=== PATIENT | male | born 1990 | race Caucasian/White ===

== ENCOUNTER → 2016-08-04 | Outpatient (CLI) | payer MEDICAID | LOC: LABMAIN 09:23 | PROVIDERS: ATTEND Internal Medicine | DX: E03.9 Hypothyroidism, unspecified (principal); E55.9 Vitamin D deficiency, unspecified; E78.5 Hyperlipidemia, unspecified | CPT/HCPCS: 36415; 80061; 82306; 84439; 84443; 84481 ==

== ENCOUNTER → 2019-09-12 | Outpatient (CLI) | payer BC ==
[2019-09-12 08:46] LABS: Basophils % (A) 0 %; Eosinophils # (A) 0.1 k/uL (0-0.7); Eosinophils % (A) 1 %; HCT 50.5 % (39.0-53.0); HGB 16.6 gm/dL (13.0-17.5); Lymphocytes # (A) 2.6 k/uL (1.0-4.8); Lymphocytes % (A) 27 %; MCH 28.5 pg (25.0-35.0); MCV 86.5 fL (80.0-100.0); Mean Platelet Volume 6.8; Monocytes # (A) 0.5 k/uL (0-1.0); Monocytes % (A) 5 %; Neutrophils # (A) 6.3 k/uL (1.3-7.7); Neutrophils % (A) 64 %; Platelet Count 363 k/uL (150-450); RBC 5.84 m/uL (4.30-5.90); RDW 12.6 % (11.5-15.5); WBC 9.8 k/uL (3.8-10.6)
[2019-09-12 12:58] LABS: ALT 24 U/L (4-49); AST 32 U/L (17-59); African American GFR (CKD) >90 (>60 ml/min/1.73 sqM); Albumin 4.8 g/dL (3.5-5.0); Albumin/Globulin Ratio 1.4; Alkaline Phosphatase 69 U/L (38-126); Anion Gap 11 mmol/L; Blood Urea Nitrogen 14 mg/dL (9-20); Calcium 10.1 mg/dL (8.4-10.2); Carbon Dioxide 28 mmol/L (22-30); Chloride 101 mmol/L (98-107); Globulin 3.5 g/dL; Glucose 92 mg/dL (74-99); Non-African American GFR(CKD) >90 (>60 ml/min/1.73 sqM); Potassium 4.3 mmol/L (3.5-5.1); Sodium 140 mmol/L (137-145); T4, Free (Free Thyroxine) 1.08 ng/dL (0.78-2.19); Total Bilirubin 0.7 mg/dL (0.2-1.3); Total Protein 8.3 g/dL (6.3-8.2)
[2019-09-12 13:04] LABS: Cholesterol 160 mg/dL (<200); HDL Cholesterol 45 mg/dL (40-60); LDL Cholesterol,Calculated 96 mg/dL (0-99); Triglycerides 96 mg/dL (<150)
== END | disposition home or self-care (01) ==
LOC: LABMAIN 07:47
PROVIDERS: ATTEND Internal Medicine
DX: Z00.00 Encounter for general adult medical examination without abnormal findings (principal); Z13.6 Encounter for screening for cardiovascular disorders; E03.9 Hypothyroidism, unspecified
CPT/HCPCS: 36415; 80053; 80061; 84439; 84443; 84481; 85025

== ENCOUNTER → 2020-06-15 | Outpatient (CLI) | payer BC ==
[2020-06-15 18:32] LABS: HCT 51.5 % (39.6-50.0); HGB 17.6 g/dL (13.0-17.0); MCH 28.9 pg (27.0-32.0); MCHC 34.2 g/dL (32.0-37.0); MCV 84.7 fL (80.0-97.0); Mean Platelet Volume 9.5 fL (9.5-12.2); Platelet Count 271 X 10*3/uL (140-440); RBC 6.08 X 10*6/uL (4.40-5.60); RDW 12.6 % (11.5-14.5); WBC 8.31 X 10*3/uL (4.50-10.00)
[2020-06-15 22:02] LABS: Hemoglobin A1C 5.1 % (4.0-6.0)
[2020-06-15 22:34] LABS: African American GFR (CKD) 92.2 (60.0-200.0); Albumin/Globulin Ratio 1.85 (1.60-3.17); Anion Gap 12.7 mmol/L (4.00-12.00); BUN/Creat Ratio 10.83 Ratio (12.00-20.00); Calcium 9.6 mg/dL (8.7-10.3); Carbon Dioxide 25.3 mmol/L (21.6-31.8); Chol/HDL Ratio 3.72; Globulin 2.7 g/dL (1.6-3.3); LDL Cholesterol,Calculated 110.2 mg/dL (0.0-131.0); Non-African American GFR(CKD) 79.5 (60.0-200.0); Potassium 3.6 mmol/L (3.5-5.5); Total Bilirubin 1.2 mg/dL (0.3-1.2); Total Protein 7.7 g/dL (6.2-8.2); VLDL Calculation 17.8 mg/dL (5.00-40.00)
== END | disposition home or self-care (01) ==
LOC: LABWHC1 11:12
PROVIDERS: ATTEND Internal Medicine Clinical Cardiac Electrophysiology
DX: E03.9 Hypothyroidism, unspecified (principal); E78.5 Hyperlipidemia, unspecified
CPT/HCPCS: 36415; 80053; 80061; 83036; 84443; 85027

== ENCOUNTER → 2021-01-28 | Outpatient (CLI) | payer BC ==
[2021-01-28 16:33] LABS: Basophils # (A) 0.02 X 10*3/uL (0.00-0.10); Basophils % (A) 0.3 %; Eosinophils # (A) 0.06 X 10*3/uL (0.04-0.35); Eosinophils % (A) 0.8 %; HCT 48.2 % (39.6-50.0); HGB 17.1 g/dL (13.0-17.0); Lymphocytes # (A) 2.11 X 10*3/uL (0.90-5.00); Lymphocytes % (A) 29.9 %; MCH 29.7 pg (27.0-32.0); MCHC 35.5 g/dL (32.0-37.0); MCV 83.7 fL (80.0-97.0); Mean Platelet Volume 9.6 fL (9.5-12.2); Monocytes # (A) 0.55 X 10*3/uL (0.20-1.00); Monocytes % (A) 7.8 %; Neutrophils % (A) 60.9 %; Platelet Count 274 X 10*3/uL (140-440); RBC 5.76 X 10*6/uL (4.40-5.60); RDW 12.4 % (11.5-14.5); WBC 7.06 X 10*3/uL (4.50-10.00)
[2021-01-28 18:24] LABS: ALT 23 U/L (10-49); AST 24 U/L (14-35); African American GFR (CKD) 110.9 (60.0-200.0); Albumin 4.8 g/dL (3.8-4.9); Albumin/Globulin Ratio 1.84 (1.60-3.17); Alkaline Phosphatase 54 U/L (41-126); BUN/Creat Ratio 14.37 Ratio (12.00-20.00); Blood Urea Nitrogen 14.8 mg/dL (9.0-27.0); Calcium 9.7 mg/dL (8.7-10.3); Carbon Dioxide 24.7 mmol/L (21.6-31.8); Chloride 98 mmol/L (96-109); Chol/HDL Ratio 3.56 Ratio; Globulin 2.6 g/dL (1.6-3.3); Glucose 97 mg/dL (70-110); LDL Cholesterol,Calculated 103.4 mg/dL (0.0-131.0); Non-African American GFR(CKD) 95.7 (60.0-200.0); Potassium 3.7 mmol/L (3.5-5.5); Sodium 134 mmol/L (135-145); Total Protein 7.4 g/dL (6.2-8.2); VLDL Calculation 10.86 mg/dL (5.00-40.00)
== END | disposition home or self-care (01) ==
LOC: LABWHC1 01-27 07:24
PROVIDERS: ATTEND Family Medicine
DX: Z00.01 Encounter for general adult medical examination with abnormal findings (principal); E03.9 Hypothyroidism, unspecified
CPT/HCPCS: 36415; 80053; 80061; 84439; 84443; 85025

== ENCOUNTER → 2024-07-21 | Outpatient (CLI) | payer MEDICAID ==
[2024-07-21 15:40] VITALS: BP 132/71; PULSE 120; RESP 16; TEMP 98.1
--- NOTE | 2024-07-21 16:30 | P.SLEEP ---
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 The patient is coming in for sleep apnea evaluation. The patient has snoring and he wakes up tired and feels quite exhausted during the day. He has 2 toddlers at home and his is with a third child and she is delivering on 30 July. The patient works 4 days a week, and he is doing a morning shift and he works between 7 AM and 5 PM. His functionality is well-preserved on the job. He does not fall asleep nor he takes any naps during the day. However, he is feeling quite exhausted and is having difficulties with recurrent respiratory tract infections and tachycardia. The patient was diagnosed having viral infections on 4 different occasions including influenza A. He is currently having sinus tachycardia, under the [facility] of [facility], Dr. Raygoza. His baseline heart rate is ranging between 100-120. No significant palpitations. No chest pain. Denies having any sleep fragmentation. No nocturia. No grinding. He wakes up with a dry mouth. No nighttime heartburn or shortness of breath. He is averaging around 6 to 7 hours of sleep. He goes to bed between 10 and 10:30 PM and he wakes up 5:45 AM in the morning. On the days off, he sleeps between 11 PM and 8 AM in the morning. Does not drink alcohol. No utilization of any caffeinated beverages. No restlessness in lower extremities. No sleep paralysis. No hallucinations. No cataplexy. His current Ravenna score is at 4. 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 He also has hypothyroidism, currently on thyroid replacement therapy and the patient also has chronic anxiety, maintained on Lexapro. No significant weight gain over the years. He is weight is up by around 10 pounds over the past 5 years. Review of Systems Constitutional: Reports fatigue Eyes: denies as per HPI, denies blurred vision, denies bulging eye, denies decreased vision, denies diplopia, denies discharge, denies dry eye, denies irritation, denies itching, denies pain, denies photophobia, denies loss of peripheral vision, denies loss of vision, denies tunnel vision/blind spots Ears: deny: decreased hearing, ear discharge, earache, tinnitus Ears, nose, mouth and throat: Reports as per HPI Breasts: absent: as per HPI, gynecomastia Cardiovascular: Reports rapid heart beat Respiratory: Reports snoring Gastrointestinal: Reports as per HPI Genitourinary: Reports as per HPI Musculoskeletal: Reports as per HPI Musculoskeletal: absent: ankle pain, ankle stiffness, ankle swelling, as per HPI, elbow pain, elbow stiffness, elbow swelling, foot pain, foot stiffness, foot swelling, hand pain, hand stiffness, hand swelling, hip pain, hip stiffness, hip swelling, knee pain, knee stiffness, knee swelling, shoulder pain, shoulder stiffness, shoulder swelling, wrist pain, wrist stiffness, wrist swelling Integumentary: Reports as per HPI Neurological: Reports as per HPI Psychiatric: Reports hypersomnia, Reports sleep disturbances Endocrine: Reports as per HPI, Reports fatigue Hematologic/Lymphatic: Reports as per HPI Allergic/Immunologic: Reports as per HPI Past Medical History Past Medical History: Asthma, Thyroid Disorder Additional Past Medical History / Comment(s): hypothyroidism, SINUS HEADACHES History of Any Multi-Drug Resistant Organisms: None Reported Past Surgical History: Adenoidectomy Additional Past Surgical History / Comment(s): nasel surg Past Anesthesia/Blood Transfusion Reactions: No Reported Reaction Past Psychological History: No Psychological Hx Reported Smoking Status: Never smoker Past Alcohol Use History: Rare Past Drug Use History: None Reported - Past Family History Father Family Medical History: GERD/Reflux, Hypertension Additional Family Medical History / Comment(s): DIVERTICULITIS, SNORING, HEADACHES Mother Additional Family Medical History / Comment(s): OSTEOPENIA, SNORING, HEADACHES Medications and Allergies Home Medications Medication Instructions Recorded Confirmed Type Albuterol Sulfate [Proair Hfa] 1 - 2 puff INHALATION Q6HR PRN 03/19/15 03/19/15 History Escitalopram [Lexapro] 2.5 mg PO DAILY 07/21/24 07/21/24 History Levothyroxine Sodium 88 mcg PO DAILY 07/21/24 07/21/24 History Allergies Allergy/AdvReac Type Severity Reaction Status Date / Time chlorpheniramine maleate Allergy Unknown Verified 04/28/22 17:53 [From Extendryl] Childhood cyclobenzaprine Allergy Unknown Verified 04/28/22 17:53 [From Flexeril] dexchlorpheniramine maleate Allergy Unknown Verified 04/28/22 17:53 [From Extendryl] Childhood methylscopolamine nitrate Allergy Unknown Verified 04/28/22 17:53 [From Extendryl] Childhood phenylephrine HCl Allergy Unknown Verified 04/28/22 17:53 [From Extendryl] Childhood sulfamethoxazole Allergy Unknown Verified 04/28/22 17:53 [From Bactrim] Childhood trimethoprim [From Bactrim] Allergy Unknown Verified 04/28/22 17:53 Childhood omeprazole AdvReac Unknown Verified 04/28/22 17:54 Physical Exam Vitals: Vital Signs Temp Pulse Resp BP Pulse Ox 07/21/24 15:39 98.1 F 120 H 16 132/71 99 Intake and Output 07/21/24 07/21/24 07/21/24 06:59 14:59 22:59 Other: Weight 82.554 kg The patient appeared well nourished and normally developed. Vital signs as documented. The patient has a body mass index of 34.2, the size of the neck is 16 inches Head exam is unremarkable. No scleral icterus or corneal arcus noted. Neck is without jugular venous distension, thyromegaly, or carotid bruits. Carotid upstrokes are brisk bilaterally. Mallampati class IV. No overbite. Lungs are clear to auscultation and percussion. Cardiac exam reveals the PMI to be normally sized and situated. Rhythm is regular. First and second heart sounds normal. No murmurs, rubs or gallops. Abdominal exam reveals normal bowel sounds, no masses, no organomegaly and no aortic enlargement. Extremities are nonedematous and both femoral and pedal pulses are normal. Examination of the skin revealed no evidence of significant rashes, suspicious appearing nevi or other concerning lesions. Neurologically, the patient is awake and alert and the patient does not have any focal neurological deficit. Cranial nerves are essentially intact. Assessment and Plan Plan: Chronic fatigue with limited sleepiness and an Ravenna score of 4. The patient has soft snoring and on examination has a Mallampati class IV. Rule out the po ssibility of postviral syndrome. Rule out underlying obstructive sleep apnea. 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 Will perform a home sleep study We will decide on treatment options based on the results of the home sleep study Follow-up with cardiology regarding the sinus tachycardia Continue Lexapro Continue thyroid hormone replacement and his levels have been adequate based on most recent blood work Maintain good sleep hygiene measures Maintain regular sleep schedule Will continue to follow Sleep Note - Sleep Data ESS Total: 4 - Sleep Note Sleep Note: Temperature: 98.1 F Pulse Rate: 120 Respiratory Rate: 16 Blood Pressure: 132/71 SpO2: 99 Height: 5 ft 4 in Weight: 82.554 kg BMI: Neck Circumference: 16
== END ==
LOC: 3 N SLEEP 14:53
PROVIDERS: ATTEND Internal Medicine Critical Care Medicine
DX: R06.83 Snoring (principal); R53.82 Chronic fatigue, unspecified; F41.9 Anxiety disorder, unspecified; D75.1 Secondary polycythemia; E03.9 Hypothyroidism, unspecified; E66.9 Obesity, unspecified; Z68.34 Body mass index [BMI] 34.0-34.9, adult; Z79.899 Other long term (current) drug therapy; Z88.2 Allergy status to sulfonamides; Z88.8 Allergy status to other drugs, medicaments and biological substances; Z91.048 Other nonmedicinal substance allergy status
CPT/HCPCS: 99211

== ENCOUNTER → 2024-10-09 | Outpatient (CLI) | payer MEDICAID ==
--- NOTE | 2024-10-26 20:39 | P.PCN ---
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 The patient is coming in for sleep apnea evaluation. The patient has snoring and he wakes up tired and feels quite exhausted during the day. He has 2 toddlers at home and his is with a third child and she is delivering on 30 July. The patient works 4 days a week, and he is doing a morning shift and he works between 7 AM and 5 PM. His functionality is well-preserved on the job. He does not fall asleep nor he takes any naps during the day. However, he is feeling quite exhausted and is having difficulties with recurrent respiratory tract infections and tachycardia. The patient was diagnosed having viral infections on 4 different occasions including influenza A. He is currently having sinus tachycardia, under the care of [facility], Dr. Raygoza. His baseline heart rate is ranging between 100-120. No significant palpitations. No chest pain. Denies having any sleep fragmentation. No nocturia. No grinding. He wakes up with a dry mouth. No nighttime heartburn or shortness of breath. He is averaging around 6 to 7 hours of sleep. He goes to bed between 10 and 10:30 PM and he wakes up 5:45 AM in the morning. On the days off, he sleeps between 11 PM and 8 AM in the morning. Does not drink alcohol. No utilization of any caffeinated beverages. No restlessness in lower extremities. No sleep paralysis. No hallucinations. No cataplexy. His current Palo score is at 4. 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 He also has hypothyroidism, currently on thyroid replacement therapy and the patient also has chronic anxiety, maintained on Lexapro. No significant weight gain over the years. He is weight is up by around 10 pounds over the past 5 years. Physical findings The patient has a body mass index of 34.2. His current weight is 82 kg. Height is 5 feet and 4 inches Technical description The Index ApneaLink system was used to complete his home sleep study. This is a type III home sleep study evaluation. The total recording duration was 9 hours and 37 minutes. The study started at 11:13 PM and it ended at 8:50 AM. There was a total of 9 hours and 24 minutes of flow monitoring and 9 hours and 26 minutes of oxygen saturation monitoring. This was an adequate study Results The respiratory analysis showed a total of 5 obstructive apneas and 89 obstructive hypopneas. The resulting AHI was 10 consistent with mild obstructive sleep apnea Oxygenation analysis The average pulse ox during sleep was 93% with the lowest pulse ox of 85%. Nevertheless, the patient managed to stay above 89% for the majority of the sleep study Cardiac summary The average heart rate was 61 with a minimum heart rate of 50 and a maximum heart of 102 Assessment Mild obstructive sleep apnea with an AHI of 10 without significant nocturnal oxygen saturations. Chronic fatigue with limited sleepiness and an Palo score of 4. The patient has soft snoring and on examination has a Mallampati class IV. Sinus tachycardia, likely postviral Postviral syndrome, 4 episodes of viral infections since December 2023 Chronic anxiety maintained on Lexapro Secondary polycythemia Hypothyroidism Obesity with a BMI of 34.2 Plan Patient has mild obstructive sleep apnea. The treatment options will be discussed with the patient. Obviously, he can proceed with CPAP therapy. However based on the severity of the illness, the benefit is limited. I think his other comorbidities are contributing to his chronic fatigue and sleepiness. During this time, the patient is to implement conservative measures of optimizing his sleep apnea. He needs to focus on losing weight. Maintain good sleep hygiene measures. Maintain regular sleep schedule. Optimize comorbidities Follow-up with cardiology regarding the sinus tachycardia Continue Lexapro Continue thyroid hormone replacement and his levels have been adequate based on most recent blood work Final decision on CPAP therapy will be made after discussing this with the patient. I am in favor of giving him a conservative yang period during which the patient can implement above mentioned measures of sleep apnea therapy. Obviously, he will need CPAP therapy if his condition gets worse.
== END ==
LOC: 3 N SLEEP 13:03
PROVIDERS: ATTEND Internal Medicine Critical Care Medicine